=== PATIENT | female | born 1935 | race Two or more races ===

== ENCOUNTER 2022-09-06 06:18 | Day surgery (SDC) | payer OTHER ==
[~2022-09-06 06:18] MED LIST: CAMBIA50 MG PO; CIPRO500 MG PO; INTESTINEX680 M1 PO; LEVOFLOXACIN750 MG PO; LOSARTAN-HCTZ1 EAC2 PO; ULTRACET PO
== END 2022-09-06 11:30 | disposition home or self-care (01) ==
LOC: AMB-ENDOS 06:18
PROVIDERS: ATTEND Surgery
DX: D12.4 Benign neoplasm of descending colon (principal); Z20.822 Contact with and (suspected) exposure to COVID-19; I10 Essential (primary) hypertension